=== PATIENT | male | born 1985 | race American Indian/Alaskan Native ===

== ENCOUNTER 2016-07-24 11:32 | Emergency (ER) | payer SELFPAY ==
[2016-07-24 11:44] VITALS: BP 232/146
[2016-07-24 12:03] LABS: Basophils % (Auto) 0.7 % (0.0-1.8); Eosinophils % (Auto) 1.3 % (0.0-4.3); Hematocrit 46.9 % (35.5-45.6); Hemoglobin 15.7 gm/dl (11.8-15.2); Mean Corpuscular HGB Conc 33 % (32-34); Mean Corpuscular Hemoglobin 27 pg (28-32); Mean Corpuscular Volume 81 fl (84-94); Platelet Count 233 K/mm3 (140-440); Red Cell Distribution Width 14.2 % (13.2-15.2); White Blood Count 10.6 K/mm3 (4.5-11.0)
[2016-07-24 12:14] LABS: INR 0.9 (0.87-1.13)
[2016-07-24 12:15] LABS: Partial Thromboplastin Time 26.1 Sec. (24.2-36.6)
[2016-07-24] MEDS ORDERED: ZOFRAN ODT PO/SL ONE (12:34)
[2016-07-24] MEDS ORDERED: NACL 0.9% 1000 ML 1,000 ML IV ONE (12:34)
[2016-07-24] MEDS ORDERED: CATAPRES PO ONE (12:36)
[2016-07-24] MEDS ORDERED: ZESTRIL PO ONE (12:36)
--- NOTE | 2016-07-24 12:55 | Emergency Department Report ---
Entered by FLOYD ELKINS, acting as scribe for CYNTHIA OLIVAREZ PA. Chief Complaint: Abdominal Pain Stated Complaint: SEVERE ABD PAIN Time Seen by Provider: 07/24/16 12:07 - HPI History of Present Illness: Pt is c/o severe LLQ and LUQ pain that began today.Rates abdominal pain a 10/10 in severity. Patient notes he had a headache 2 days ago that has resolved today without medication. patient is alert and oriented to person, place and time. Reports vomiting x1 today. Denies constipation/diarrhea, dysuria, penile discharge, urgency, and frequency. Denies chest pain, headache, and back pain Took Motrin yesterday for headache with relief. PMHx of HTN and notes noncompliancy to medication (lisinopril 20mg). Denies any PSHx - ROS Review of Systems: All systems are negative unless stated in HPI above. - Exam Vital Signs: Vital Signs 07/24/16 11:40 Temperature 98.4 F Pulse Rate 76 Respiratory 20 Rate Blood Pressure 232/146 O2 Sat by Pulse 100 Oximetry Physical Exam: General: 31 y/o male that is alert, awake, well nourished, and well developed. Pt looks sick. Cardiovascular: Regular rate and rhythm. Respiratory: Clear to auscultation bilaterally, no rhonchi, wheezes, or rales. Abdomen: LLQ and LUQ tenderness present Neurologic: Alert and oriented x3. Normal sensory noted. normal strength note. MSE screening note: Focused history and physical exam performed. Due to findings the following was ordered: ED Medical Decision Making - Lab Data Result diagrams: 07/24/16 11:56 - Radiology Data Radiology results: pending - Medical Decision Making Patient was seen by provider in triage area. patient will have blood work and xray imaging studies ordered until further evaluation on Main side. patient will recieve clonidine and lisinopril for BP management while waiting. ED Disposition for MSE Condition: Stable This documentation as recorded by the scribe,FLOYD ELKINS,accurately reflects the service I personally performed and the decisions made by me,CYNTHIA OLIVAREZ PA.
[2016-07-24 13:14] LABS: Alanine Aminotransferase 20 units/L (7-56); Albumin 4.3 g/dL (3.9-5); Albumin/Globulin Ratio 1.3 %; Alkaline Phosphatase 101 units/L (35-129); Total Protein 7.5 g/dL (6.3-8.2)
--- NOTE | 2016-07-24 13:19 | XRay Report ---
ABDOMINAL SERIES INDICATION: Left lower and upper abdominal pain. COMPARISON: None similar. FINDINGS: Abdominal series, 5 radiographs, demonstrate nonobstructive bowel gas pattern without focal suspicious calcifications, pneumatosis or pneumoperitoneum. Moderate colonic stool/possible constipation. Accompanying chest radiograph demonstrates normal cardiomediastinal silhouette. Clear lungs. Unremarkable bones. CONCLUSION: Possible constipation. Please correlate. Thank you for the opportunity to participate in this patient's care.
[2016-07-24 13:59] LABS: Bilirubin,Direct < 0.2 mg/dL (0-0.2)
[2016-07-24 15:43] LABS: BUN/Creatinine Ratio 15.45; Blood Urea Nitrogen 17 mg/dL (9-20); Calcium 9.4 mg/dL (8.4-10.2); Carbon Dioxide 18 mmol/L (22-30); Chloride 97.9 mmol/L (98-107); Glucose 117 mg/dL (75-100); Lipase 144 units/L (13-60); Sodium 138 mmol/L (137-145)
[2016-07-24 16:19] LABS: Anion Gap 28 mmol/L; Potassium 5.9 mmol/L (3.6-5.0)
--- NOTE | 2016-07-25 07:22 | ED Elopement Review ---
ED Pt Elopement review - Results review Lab results: Laboratory Tests 07/24/16 07/24/16 07/24/16 11:53 11:56 11:56 WBC 10.6 RBC 5.80 H Hgb 15.7 H Hct 46.9 H MCV 81 L MCH 27 L MCHC 33 RDW 14.2 Plt Count 233 Lymph % (Auto) 17.8 [place] % (Auto) 6.2 Eos % (Auto) 1.3 Baso % (Auto) 0.7 Lymph # 1.9 [place] # 0.7 Eos # 0.1 Baso # 0.1 Seg Neutrophils % 74.0 H Seg Neutrophils # 7.8 H PT 12.1 L INR 0.90 APTT 26.1 Thrombin Time Sodium Potassium Chloride Carbon Dioxide Anion Gap BUN Creatinine Estimated GFR BUN/Creatinine Ratio Glucose Calcium Total Bilirubin 0.20 Direct Bilirubin < 0.2 AST 29 ALT 20 Alkaline Phosphatase 101 Troponin T Total Protein 7.5 Albumin 4.3 Albumin/Globulin Ratio 1.3 Lipase 07/24/16 07/24/16 11:56 11:56 WBC RBC Hgb Hct MCV MCH MCHC RDW Plt Count Lymph % (Auto) [place] % (Auto) Eos % (Auto) Baso % (Auto) Lymph # [place] # Eos # Baso # Seg Neutrophils % Seg Neutrophils # PT INR APTT Thrombin Time 16.3 Sodium 138 Potassium 5.9 H Chloride 97.9 L Carbon Dioxide 18 L Anion Gap 28 BUN 17 Creatinine 1.1 Estimated GFR > 60 BUN/Creatinine Ratio 15.45 Glucose 117 H Calcium 9.4 Total Bilirubin Direct Bilirubin AST ALT Alkaline Phosphatase Troponin T < 0.010 Total Protein Albumin Albumin/Globulin Ratio Lipase 144 H - Call Back decision Pt Call Back Decision: Call pt to return to ED JOSE D (severe HTN hyperkalemia)
== END 2016-07-24 13:00 | disposition left against medical advice (07) ==
LOC: ED 11:32
DX: R10.9 Unspecified abdominal pain (principal); Z53.21 Procedure and treatment not carried out due to patient leaving prior to being seen by health care provider
CPT/HCPCS: 36415; 74022; 80048; 80074; 83690; 84484; 85025; 85610; 85670; 85730; 93005; 93010; Q0162

== ENCOUNTER 2018-05-31 16:04 | Emergency (ER) | payer OTHER ==
[2018-05-31] MEDS ORDERED: MORPHINE IV ONE ×2 (16:49→18:10)
--- NOTE | 2018-05-31 16:49 | Emergency Department Report ---
ED Chest Pain HPI - General Chief Complaint: Chest Pain Stated Complaint: CHEST PAIN Time Seen by Provider: 05/31/18 16:39 Source: patient, EMS Mode of arrival: Stretcher Limitations: No Limitations - History of Present Illness Initial Comments: 33-year-old -[place] male presents to the emergency department via EMS from work with complaint of a three-day history of pain to the chest and back. He says at first it started towards the left lower chest, "on the inside", but now has radiated towards the back. He denies any shortness of breath but does say it feels difficult to breathe deeply secondary to increasing pain. He denies any past medical history but there does appear to be some history of hypertension in the past. He is a tobacco and marijuana smoker. He did not take anything for his symptoms at home prior to arrival did receive some aspirin in route with EMS. No recent travel or sick contacts at home. He does not have a primary care physician. Severity scale (0 -10): 10 - Related Data Previous Rx's Medication Instructions Recorded Last Taken Type Lisinopril [Zestril TAB] 20 mg PO QDAY #30 tablet 07/08/13 Unknown Rx hydroCHLOROthiazide 25 mg PO DAILY #30 tablet 07/08/13 Unknown Rx [Hydrochlorothiazide] oxyCODONE /ACETAMINOPHEN [Percocet 1 tab PO Q6HR PRN #10 tablet 07/08/13 Unknown Rx 5/325 mg] Amlodipine Besylate [Norvasc] 10 mg PO QDAY #30 tablet 05/31/18 Unknown Rx Sulfamethoxazole/Trimethoprim 1 each PO BID #14 tablet 05/31/18 Unknown Rx [Bactrim DS TAB] Allergies Allergy/AdvReac Type Severity Reaction Status Date / Time No Known Allergies Allergy Verified 05/31/18 16:42 Heart Score - HEART Score History: Slightly suspicious EKG: Non-specific Age: < 45 Risk factors: 1-2 risk factors Troponin: < normal limit HEART Score: 2 - Critical Actions Critical Actions: 0-3 pts:0.9-1.7%risk of adverse cardiac event.Candidate for discharge ED Review of Systems ROS: Stated complaint: CHEST PAIN Other details as noted in HPI Comment: All other systems reviewed and negative Constitutional: denies: chills, fever Eyes: denies: eye pain, vision change ENT: denies: ear pain, throat pain Respiratory: denies: cough, wheezing Cardiovascular: chest pain. denies: palpitations Gastrointestinal: denies: abdominal pain, vomiting Genitourinary: denies: dysuria, discharge Musculoskeletal: back pain. denies: arthralgia Skin: denies: rash, lesions Neurological: denies: headache, weakness ED Past Medical Hx - Past Medical History Hx Hypertension: Yes (no meds) - Social History Smoking Status: Current Every Day Smoker Substance Use Type: Marijuana - Medications Home Medications: Home Medications Medication Instructions Recorded Confirmed Last Taken Type Lisinopril [Zestril TAB] 20 mg PO QDAY #30 tablet 07/08/13 Unknown Rx hydroCHLOROthiazide 25 mg PO DAILY #30 tablet 07/08/13 Unknown Rx [Hydrochlorothiazide] oxyCODONE /ACETAMINOPHEN [Percocet 1 tab PO Q6HR PRN #10 tablet 07/08/13 Unknown Rx 5/325 mg] Amlodipine Besylate [Norvasc] 10 mg PO QDAY #30 tablet 05/31/18 Unknown Rx Sulfamethoxazole/Trimethoprim 1 each PO BID #14 tablet 05/31/18 Unknown Rx [Bactrim DS TAB] ED Physical Exam - General Limitations: No Limitations - Other Other exam information: GENERAL: The patient is well-developed well-nourished. HEENT: Normocephalic. Atraumatic. Patient has moist mucous membranes. EYES: Extraocular motions are intact. Pupils are equal and reactive to light bilaterally. NECK: Supple. Trachea is midline. CHEST/LUNGS: Clear to auscultation. There is no respiratory distress noted. HEART/CARDIOVASCULAR: Regular. There is mild tachycardia. There is no obvious murmur. ABDOMEN: Abdomen is soft, nontender. Patient has normal bowel sounds. There is no abdominal distention. SKIN: Skin is warm and dry. NEURO: The patient is awake, alert, and oriented. The patient is cooperative. The patient has no focal neurologic deficits. The patient has normal speech. MUSCULOSKELETAL: There is no tenderness or deformity. There is no limitation range of motion. There is no evidence of acute injury. BACK: No midline thoracic or lumbar tenderness to palpation, step-off or deformity. ED Course Vital Signs 05/31/18 05/31/18 05/31/18 17:06 17:13 17:16 Temperature 99.6 F Pulse Rate 100 H Respiratory 18 Rate Blood Pressure 178/122 Blood Pressure 178/122 [Left] O2 Sat by Pulse 93 96 Oximetry 05/31/18 05/31/18 05/31/18 17:30 17:46 18:16 Temperature Pulse Rate 105 H 111 H 108 H Respiratory 25 H 28 H 28 H Rate Blood Pressure 183/130 178/122 179/135 Blood Pressure [Left] O2 Sat by Pulse 99 99 98 Oximetry 05/31/18 05/31/18 05/31/18 18:30 18:50 18:54 Temperature Pulse Rate 105 H 112 H Respiratory 24 18 18 Rate Blood Pressure 205/147 216/151 Blood Pressure [Left] O2 Sat by Pulse 97 97 Oximetry 05/31/18 05/31/18 05/31/18 18:57 19:00 19:30 Temperature 98.2 F Pulse Rate 109 H 102 H 99 H Respiratory 27 H 22 Rate Blood Pressure 179/135 208/148 Blood Pressure 205/145 [Left] O2 Sat by Pulse 95 97 Oximetry 05/31/18 05/31/18 05/31/18 20:00 20:09 21:35 Temperature Pulse Rate 95 H 95 H 97 H Respiratory 19 Rate Blood Pressure 196/146 197/108 192/137 Blood Pressure [Left] O2 Sat by Pulse 99 Oximetry 05/31/18 22:42 Temperature Pulse Rate 92 H Respiratory 22 Rate Blood Pressure Blood Pressure 169/125 [Left] O2 Sat by Pulse 98 Oximetry AZEEM score - Azeem Score Age > 65: (0) No Aspirin use within the Past 7 Days: (0) No 3 or more CAD Risk Factors: (0) No 2 or more Angina events in past 24 hrs: (1) Yes Known CAD with more than 50% Stenosis: (0) No Elevated Cardiac Markers: (0) No ST Deviation Greater than 0.5mm: (0) No AZEEM Score: 1 ED Medical Decision Making - Lab Data Result diagrams: 05/31/18 16:57 05/31/18 16:57 - EKG Data -: EKG Interpreted by Me EKG shows normal: sinus rhythm, axis, intervals, QRS complexes (LVH), ST-T waves (anterior early repolarization) Rate: normal - EKG Data When compared to previous EKG there are: no significant change Interpretation: unchanged when compared t (07/24/16) - Radiology Data Radiology results: report reviewed, image reviewed interpreted by me: Chest x-ray does not show any pneumothorax, pleural effusion, pneumonia or obvious focal consolidation. PROCEDURE: CT ANGIO CHEST TECHNIQUE : Enhanced CT of the chest at 2.5 mm axial intervals following a pulmonary embolism protocol. Coronal and sagittal imaging were also obtained. Coronal oblique MIP projections were obtained. CT DOSE LENGTH PRODUCT: 455.5 mGycm CONTRAST: Intravenous contrast given HISTORY: CP, elevated dimer PRIORS: CXR 05/31/2018 FINDINGS: There is no evidence for pulmonary embolism in the main pulmonary artery, right and left pulmonary arteries or their major distributions. However, CT does not exclude distal pulmonary emboli. There is an alveolar infiltrate and consolidation in the left lower lobe. There is also a moderate left pleural effusion. Elevation of the left hemidiaphragm is again noted. There is no evidence for mediastinal, hilar, or axillary adenopathy. Cardiovascular structures are within normal limits. No evidence for ventricular chamber enlargement is seen. Images through the lung bases include the upper abdomen which show an enlarged right adrenal gland with nodular contour measuring 2.5 x 2.1 x 2.5 cm. There is central calcification within this focus. This should be further evaluated with dedicated adrenal imaging. Bony structures demonstrate no focal abnormalities. IMPRESSION: 1. No evidence for pulmonary embolism. 2. Alveolar consolidation in the left lower lobe 3. Moderate left pleural effusion 4. Right adrenal nodule. This should be further evaluated with dedicated adrenal imaging. This document is electronically signed by Yenifer Terrell MD., May 31 2018 08:05:27 PM ET Transcribed By: [facility] Dictated By: YENIFER TERRELL MD Electronically Authenticated By: YENIFER TERRELL MD Signed Date/Time: 05/31/182006 - Medical Decision Making Patient presents to the emergency department with complaint of some back pain that started today after the patient had some previous chest pains. EKG does not show any signs of ST elevation NC or dysrhythmia. Labs have been mostly unremarkable including negative troponins 2 except for a elevated d-dimer level. For this reason a CT angiography of the chest was done that does not show any pulmonary embolism, dissection, aneurysm, but did show a left lower lobe alveolar consolidation. For this reason the patient was treated with some Levaquin. The patient also presents with extremely elevated blood pressure. He appears to have history of hypertension and medication noncompliance. On top of that, the patient is a tobacco smoker and does admit to some salt and caffeine intake. He was given a few doses of antihypertensive medication and it came down to a more reasonable level, although still hypertensive. The patient was reevaluated multiple times for multiple hours and says that he is pain-free and asymptomatic. He is low on the Valdovinos score criteria and low on the AZEEM score. On top of that, the patient presents with back pain only today. For all of these Reasons, the patient appears safe for discharge home at this time. He will be started on Norvasc for his blood pressure. He has been given referrals for primary care. We had a long Discussion regarding smoking cessation, staying away from foods that are high in salt and caffeinated products, keeping a blood pressure log, and the patient will return to the emergency department with any return of his symptoms or with any acute distress. - Differential Diagnosis NC, PE, muscle spasm, GERD, pneumothorax Critical Care Time: No Critical care attestation.: If time is entered above; I have spent that time in minutes in the direct care of this critically ill patient, excluding procedure time. ED Disposition Clinical Impression: Hypertensive urgency Back pain Qualifiers: Back pain location: thoracic back pain Chronicity: unspecified Back pain laterality: unspecified Qualified Code(s): M54.6 - Pain in thoracic spine Hypertension Qualifiers: Hypertension type: essential hypertension Qualified Code(s): I10 - Essential (primary) hypertension Pneumonia Qualifiers: Pneumonia type: due to unspecified organism Laterality: left Lung location: lower lobe of lung Qualified Code(s): J18.1 - Lobar pneumonia, unspecified organism Disposition: DC-01 TO HOME OR SELFCARE Is pt being admited?: No Condition: Stable Instructions: Community-acquired Pneumonia (ED), Hypertension (ED) Additional Instructions: Please follow up with a primary care physician in the next few days. Try and quit smoking. Stay away from foods that are high in salt and caffeinated products to help with her blood pressure. Keep a blood pressure log. Return to the emergency department with any return of chest pain, worsening of your symptoms, any acute distress. I'm starting you on a blood pressure medication called Norvasc/amlodipine that is taken once per day, usually in the morning. Prescriptions: Sulfamethoxazole/Trimethoprim [Bactrim DS TAB] 1 each PO BID #14 tablet Amlodipine Besylate [Norvasc] 10 mg PO QDAY #30 tablet Referrals: JANNY CONCEPCION MD [Staff Physician] - 2-3 Days LUIGI IVEY MD [Staff Physician] - 2-3 Days [facility] [Outside] - 2-3 Days Time of Disposition: 22:38
[2018-05-31 17:09] LABS: Basophils # (Auto) 0.1 K/mm3 (0.0-0.1); Basophils % (Auto) 0.5 % (0.0-1.8); Eosinophils # (Auto) 0.1 K/mm3 (0.0-0.4); Eosinophils % (Auto) 0.5 % (0.0-4.3); Hematocrit 39.1 % (35.5-45.6); Hemoglobin 13.4 gm/dl (11.8-15.2); Lymphocytes # (Auto) 1.4 K/mm3 (1.2-5.4); Lymphocytes % (Auto) 7.6 % (13.4-35.0); Mean Corpuscular HGB Conc 34 % (32-34); Mean Corpuscular Hemoglobin 27 pg (28-32); Mean Corpuscular Volume 78 fl (84-94); Monocytes # (Auto) 1.2 K/mm3 (0.0-0.8); Monocytes % (Auto) 6.1 % (0.0-7.3); Platelet Count 302 K/mm3 (140-440); Red Blood Count 5.04 M/mm3 (3.65-5.03)
[2018-05-31 17:46] LABS: BUN/Creatinine Ratio 8; Blood Urea Nitrogen 13 mg/dL (9-20); Calcium 9.3 mg/dL (8.4-10.2); Hemolysis Index 3
[2018-05-31] MEDS ORDERED: NORMODYNE IV ONE ×2 (17:49→20:59)
[2018-05-31] MEDS ORDERED: NACL 0.9% 500 ML 500 ML IV ONE (17:49)
--- NOTE | 2018-05-31 18:51 | XRay Report ---
PROCEDURE: XR CHEST 1V AP HISTORY: Chest Pain FINDINGS: Single frontal view of the chest was acquired. No prior studies available for comparison. There is cardiomegaly. The left lung base is not well seen but the could be due to the enlarged heart . Lateral view may be considered for further evaluation as clinically indicated. The right lung appea rs clear. There is no evidence of congestive heart failure. There is no pneumothorax. IMPRESSION: Cardiomegaly The left lung bases not well seen this could be due to the enlarged cardiac silhouette. Consider late ral view for further evaluation. This document is electronically signed by Adriano Melo MD., May 31 2018 06:49:19 PM ET
[2018-05-31] MEDS ORDERED: APRESOLINE IV ONE ×2 (19:36→20:58)
--- NOTE | 2018-05-31 20:07 | Cat Scan Report ---
PROCEDURE: CT ANGIO CHEST TECHNIQUE : Enhanced CT of the chest at 2.5 mm axial intervals following a pulmonary embolism protoco l. Coronal and sagittal imaging were also obtained. Coronal oblique MIP projections were obtained. CT DOSE LENGTH PRODUCT: 455.5 mGycm CONTRAST: Intravenous contrast given HISTORY: CP, elevated dimer PRIORS: CXR 05/31/2018 FINDINGS: There is no evidence for pulmonary embolism in the main pulmonary artery, right and left pulmonary ar teries or their major distributions. However, CT does not exclude distal pulmonary emboli. There is an alveolar infiltrate and consolidation in the left lower lobe. There is also a moderate le ft pleural effusion. Elevation of the left hemidiaphragm is again noted. There is no evidence for mediastinal, hilar, or axillary adenopathy. Cardiovascular structures are wi thin normal limits. No evidence for ventricular chamber enlargement is seen. Images through the lung bases include the upper abdomen which show an enlarged right adrenal gland wi th nodular contour measuring 2.5 x 2.1 x 2.5 cm. There is central calcification within this focus. Th is should be further evaluated with dedicated adrenal imaging. Bony structures demonstrate no focal abnormalities. IMPRESSION: 1. No evidence for pulmonary embolism. 2. Alveolar consolidation in the left lower lobe 3. Moderate left pleural effusion 4. Right adrenal nodule. This should be further evaluated with dedicated adrenal imaging. This document is electronically signed by Yenifer Terrell MD., May 31 2018 08:05:27 PM ET
[2018-05-31] MEDS ORDERED: LEVAQUIN 750MG/150ML 750 MG/150 ML BAG IV ONE (20:09)
[2018-05-31] MEDS ORDERED: ZOFRAN IV ONE (21:47)
[2018-05-31 22:43] VITALS: BP 169/125
== END 2018-05-31 23:20 | disposition home or self-care (01) ==
LOC: ED 16:04
DX: J18.1 Lobar pneumonia, unspecified organism (principal); I10 Essential (primary) hypertension; M54.6 Pain in thoracic spine; F17.200 Nicotine dependence, unspecified, uncomplicated
CPT/HCPCS: 36415; 71045; 71275; 80048; 84484; 85025; 85379; 93005; 93010; 96365; 96375; 96376; 99285; J0360; J1956; J2270; J2405; J7040; Q9967